=== PATIENT | male | born 2000 | race Asian ===

== ENCOUNTER 2020-02-23 17:55 | Emergency (ER) | payer OTHER ==
--- NOTE | 2020-02-23 18:44 | EDM.PDOC ---
ED HPI GENERAL MEDICAL PROBLEM - General Chief Complaint: Lower Extremity Injury/Pain Stated Complaint: LEFT KNEE INJURY Time Seen by Provider: 02/23/20 17:59 Source of Information: Reports: Patient History Limitations: Reports: No Limitations - History of Present Illness INITIAL COMMENTS - FREE TEXT/NARRATIVE: HISTORY AND PHYSICAL: History of present illness: Patient is a 19-year-old male who presents to the ED today with concern of left knee pain and injury that occurred just prior to arrival to the ED. Patient states he was up on a large tire of a vehicle when he stepped down. Patient states he felt his knee twist and his kneecap was off to the side. Patient states that while waiting in the ED he was able to get his kneecap to pop back into place according to patient. Patient states he still has significant knee pain. Patient states he has not taken anything for his symptoms. Patient denies any other symptoms or concerns. Patient denies fever, chills, chest pain, shortness of breath, or cough. Denies headache, neck stiff ness, change in vision, syncope, or near syncope. Denies nausea, vomiting, abdominal pain, diarrhea, constipation, or dysuria. Has not noted any blood in urine or stool. Patient has been eating and drinking appropriately. Review of systems: As per history of present illness and below otherwise all systems reviewed and negative. Past medical history: As per history of present illness and as reviewed below otherwise noncontributory. Surgical history: As per history of present illness and as reviewed below otherwise noncontr ibutory. Social history: See social history for further information Family history: As per history of present illness and as reviewed below otherwise noncontributory. Physical exam: General: Patient is alert, oriented, and in no acute distress. Patient sitting comfortably on exam table. HEENT: Atraumatic, normocephalic, pupils equal and reactive bilaterally, negative for conjunctival pallor or scleral icterus, mucous membranes moist, TMs normal bilaterally, throat clear, neck supple, nontender, trachea midline. No drooling or trismus noted. No meningeal signs. No hot potato voice noted. Lungs: Clear to auscultation, breath sounds equal bilaterally, chest nontender. Heart: S1S2, regular rate and rhythm without overt murmur Abdomen: Soft, nondistended, nontender. Negative for masses or hepatosplenomegaly. Negative for costovertebral tenderness. Pelvis: Stable nontender. Genitourinary: Deferred. Rectal: Deferred. Skin: Intact, warm, dry. No lesions or rashes noted. Extremities: The left knee is moderately edematous. Patient has limited range of motion of the left knee due to pain. Exam of the knee is limited due to pain. Dorsalis pedis and posterior tibial pulses are intact of the left lower extremity with capillary refill less than 2 seconds. Atraumatic, negative for cords or calf pain. Neurovascular unremarkable. Neuro: Awake, alert, oriented. Cranial nerves II through XII unremarkable. Cerebellum unremarkable. Motor and sensory unremarkable throughout. Exam nonfocal. Notes: Discussed importance for follow-up with an orthopedic provider. Voices understanding and is agreeable to plan of care. Denies any further questions or concerns at this time. Diagnostics: Knee x-ray Therapeutics: Knee immobilizer and crutches Prescription: None Impression: Femoral condyle fracture, left Plan: 1. Rest, ice, elevate the affected extremity. You can apply ice 15 minutes on, 15 minutes off. Keep immobilizer on until orthopedic evaluation. 2. Tylenol and/or Ibuprofen as directed for pain management or discomfort. 3. Follow up with the Orthopedic provider as discussed. Return to the ED as needed and as discussed. Definitive disposition and diagnosis as appropriate pending reevaluation and review of above. left knee Pain Score (Numeric/FACES): 2 - Related Data Allergies Allergy/AdvReac Type Severity Reaction Status Date / Time No Known Allergies Allergy Verified 02/23/20 18:45 Home Meds: Home Meds . [No Known Home Meds] 02/23/20 [History] Review of Systems - Review of Systems Review Of Systems: Comprehensive ROS is negative, except as noted in HPI. ED EXAM, GENERAL - Physical Exam Exam: See Below (See dictation) Course - Vital Signs Last Recorded V/S: Last Vital Signs Temp 98.4 F 02/23/20 18:43 Pulse 83 02/23/20 18:43 Resp 16 02/23/20 18:43 BP 122/75 02/23/20 18:43 Pulse Ox 97 02/23/20 18:43 - Orders/Labs/Meds Orders: Active Orders 24 hr Category Date Time Status DME for Discharge [COMM] Stat Oth 02/23/20 20:10 Ordered DME for Discharge [COMM] Stat Oth 02/23/20 20:11 Ordered Departure - Departure Time of Disposition: 20:12 Disposition: Home, Self-Care 01 Clinical Impression: Femoral condyle fracture Qualifiers: Encounter type: initial encounter Fracture type: closed Fracture alignment: nondisplaced Laterality: left Qualified Code(s): S72.415A - Nondisplaced unspecified condyle fracture of lower end of left femur, initial encounter for closed fracture - Discharge Information Referrals: PCP,None [Primary Care Provider] - Forms: ED Department Discharge Additional Instructions: The following information is given to patients seen in the emergency department who are being discharged to home. This information is to outline your options for follow-up care. We provide all patients seen in our emergency department with a follow-up referral. The need for follow-up, as well as the timing and circumstances, are variable depending upon the specifics of your emergency department visit. If you don't have a primary care physician on staff, we will provide you with a referral. We always advise you to contact your personal physician following an emergency department visit to inform them of the circumstance of the visit and for follow-up with them and/or the need for any referrals to a consulting specialist. The emergency department will also refer you to a specialist when appropriate. This referral assures that you have the opportunity for follow-up care with a specialist. All of these measure are taken in an effort to provide you with optimal care, which includes your follow-up. Under all circumstances we always encourage you to contact your private physician who remains a resource for coordinating your care. When calling for follow-up care, please make the office aware that this follow-up is from your recent emergency room visit. If for any reason you are refused follow-up, please contact the [facility] Emergency Department at and asked to speak to the emergency department charge nurse. [facility] Primary [facility] [address] [place] [id number] [facility] [address] [place] [address] [facility] Specialty Care - Orthopedic Clinic Professional Building [address], [address] [place] [address] Dr Gallegos, Orthopedist [facility] [address] [place] [address] Dr York - Dr Shaw - Dr Rodriguez [facility] at [facility] [address] [place] [address] [facility] [address] [place] [address] 1. Rest, ice, elevate the affected extremity. You can apply ice 15 minutes on, 15 minutes off. Keep immobilizer on until orthopedic evaluation. 2. Tylenol and/or Ibuprofen as directed for pain management or discomfort. 3. Follow up with the Orthopedic provider as discussed. Return to the ED as needed and as discussed. Sepsis Event Note (ED) - Focused Exam Vital Signs: Vital Signs Temp Pulse Resp BP Pulse Ox 02/23/20 18:43 98.4 F 83 16 122/75 97 - My Orders Last 24 Hours: My Active Orders 02/23/20 20:10 DME for Discharge [COMM] Stat 02/23/20 20:11 DME for Discharge [COMM] Stat - Assessment/Plan Last 24 Hours: My Active Orders 02/23/20 20:10 DME for Discharge [COMM] Stat 02/23/20 20:11 DME for Discharge [COMM] Stat
--- NOTE | 2020-02-23 20:07 | CR ---
Left knee: AP, lateral and sunrise patellar views left knee were obtained. Comparison: No previous study. Very small laurie of bone is seen next to the inferior patella which appears to represent a small osteochondral fracture off the inferior patella. Small joint effusion is seen. Medial and lateral joint spaces are maintained. Small bony density is also noted off the epicondyle of the lateral femur suspicious for small avulsion fracture which is mildly displaced at the attachment of the lateral collateral ligament. No additional bony abnormality is appreciated. Impression: 1. Findings suspicious for avulsion fracture at the attachment of the lateral collateral ligament to the epicondylar femur. 2. Minimal osteochondral fracture off the inferior patella. 3. Small joint effusion. Diagnostic code #3 This report was dictated in MDT
[2020-02-23] MEDS ORDERED: Acetaminophen/oxyCODONE 325-5 MG Tab PO ONE (21:25)
== END 2020-02-23 21:32 | disposition home or self-care (01) ==
LOC: MW.ED 17:55
DX: S72.415A Nondisplaced unspecified condyle fracture of lower end of left femur, initial encounter for closed fracture (principal); X50.1XXA Overexertion from prolonged static or awkward postures, initial encounter
CPT/HCPCS: 73562; 99283; A9270; 99282

== ENCOUNTER 2024-04-28 12:49 | Emergency (ER) | payer BC ==
[2024-04-28 13:04] LABS: BASOPHILS ABSOLUTE AUTO 0.05 K/uL (0.00-0.20); BASOPHILS PERCENT AUTO 0.5 % (0.0-1.0); EOSINOPHILS ABSOLUTE AUTO 0.34 K/uL (0.00-0.45); EOSINOPHILS PERCENT AUTO 3.7 % (0.0-6.0); HEMATOCRIT 44.8 % (42.0-52.0); HEMOGLOBIN 15.7 g/dL (14.0-18.0); IMMATURE GRAN ABSOLUTE AUTO 0.02 K/uL (0.00-0.05); IMMATURE GRAN PERCENT AUTO 0.2 % (0.0-0.4); LYMPHOCYTES ABSOLUTE AUTO 2.74 K/uL (1.00-4.80); LYMPHOCYTES PERCENT AUTO 29.9 % (24.0-44.0); MEAN CORPUSCULAR HEMOGLOBIN 30.1 pg (28.0-32.0); MEAN CORPUSCULAR VOLUME 85.8 fL (83.0-99.0); MEAN PLATELET VOLUME 9.3 fL (9.4-12.4); MONOCYTES ABSOLUTE AUTO 0.58 K/uL (0.00-0.80); MONOCYTES PERCENT AUTO 6.3 % (0.0-8.0); NEUTROPHILS ABSOLUTE AUTO 5.43 K/uL (1.80-7.70); NEUTROPHILS PERCENT AUTO 59.4 % (41.0-71.0); PLATELET COUNT,PLT 406 K/uL (150-400); RED BLOOD CELL COUNT 5.22 M/uL (4.52-5.90); WHITE BLOOD CELL COUNT,WBC 9.16 K/uL (3.9-11.3)
[2024-04-28 13:36] LABS: A/G RATIO 1.2 (0.9-1.6); ALBUMIN 4.4 g/dL (3.4-5.0); BILIRUBIN TOTAL 0.3 mg/dL (0.2-1.0); CALCIUM 9.6 mg/dL (8.5-10.1); EST CRCL DRUG DOSING (CG) 118.63 mL/min
[2024-04-28] MEDS: Alum Hydrox/Mag Hydrox/Simeth 15 ML, Lidocaine 2% 5 ML PO STA (13:42)
== END 2024-04-28 14:30 | disposition home or self-care (01) ==
LOC: MW.ED 12:49
DX: R10.10 Upper abdominal pain, unspecified (principal); Z75.8 Other problems related to medical facilities and other health care
CPT/HCPCS: 36415; 80053; 83605; 83690; 85025; 99284; A9270

== ENCOUNTER 2024-08-15 06:56 | Day surgery (SDC) | payer BC ==
[2024-08-15] MEDS ORDERED: ceFAZolin 2 GM in Sodium Chloride 0.9% 50 ML IV ONE (07:00)
[2024-08-15] MEDS ORDERED: Bupivacaine 0.5% 10 ML SDV ONE (07:19)
[2024-08-15] MEDS ORDERED: ceFAZolin 1 GM Vial ONE (07:19)
[2024-08-15] MEDS ORDERED: Morphine 10 MG/ML SDV ONE (07:32)
[2024-08-15] MEDS ORDERED: fentaNYL 250 MCG/5 ML SDV ONE (07:32)
[2024-08-15] MEDS ORDERED: Propofol 200 MG/20 ML SDV ONE (07:32)
[2024-08-15] MEDS ORDERED: HYDROmorphone 1 MG/ML Syringe IVPUSH PRN (07:38)
[2024-08-15] MEDS ORDERED: Sodium Chloride 0.9% 20 ML ONE ×2 (07:38)
[2024-08-15] MEDS ORDERED: Ondansetron 4 MG/2 ML SDV IVPUSH PRN (07:38)
[2024-08-15] MEDS ORDERED: Famotidine 20 MG/2 ML SDV ONE (07:38)
[2024-08-15] MEDS ORDERED: Morphine 2 MG/ML SYRINGE IVPUSH PRN (07:38)
[2024-08-15] MEDS ORDERED: Albuterol 0.083% 2.5 MG/3 ML Neb Soln NEB PRN (07:38)
[2024-08-15] MEDS ORDERED: Ropivacaine 0.5% 5 MG/ML 30 ML SDV ONE (07:38)
[2024-08-15] MEDS ORDERED: Phenylephrine HCl In 0.9% NaCl 1 MG/10 ML Syringe IVPUSH PRN (07:38)
[2024-08-15] MEDS ORDERED: Metoclopramide 10 MG/2 ML SDV IVPUSH PRN (07:38)
[2024-08-15] MEDS ORDERED: fentaNYL 50 MCG/ML SDV IVPUSH PRN (07:38)
[2024-08-15] MEDS ORDERED: Naloxone 0.4 MG/ML SDV IVPUSH PRN (07:38)
[2024-08-15] MEDS: Lactated Ringers 1,000 ML IV SCH (07:39)
[2024-08-15] MEDS: Scopalamine 1mg/3day Transdermal Patch TRDERM PRN (07:48)
[2024-08-15] MEDS ORDERED: ceFAZolin 2 GM Vial ONE (08:12)
[2024-08-15] MEDS ORDERED: Ketamine HCL/NACL, ISO-OSM 50 MG/5 ML Syringe ONE (08:15)
[2024-08-15] MEDS ORDERED: fentaNYL 100 MCG/2 ML SDV ONE ×2 (08:23)
[2024-08-15] MEDS ORDERED: Ondansetron 4 MG/2 ML SDV ONE (08:27)
[2024-08-15] MEDS ORDERED: Ketorolac 30 MG/ML SDV ONE (08:27)
[2024-08-15] MEDS ORDERED: Dexamethasone 4 MG/ML 5 ML MDV ONE (08:27)
[2024-08-15] MEDS ORDERED: Lidocaine 2% 11 ML Jelly Filled Syringe ONE (08:28)
[2024-08-15] MEDS ORDERED: Sugammadex Sodium 200 MG/2 ML VIAL IV ONE (08:57)
[2024-08-15] MEDS ORDERED: Acetaminophen/HYDROcodone 325-5 MG Tab PO PRN (09:53)
[2024-08-15] MEDS ORDERED: Lactated Ringers 1,000 ML IV SCH (10:00)
== END 2024-08-15 12:10 | disposition home or self-care (01) ==
LOC: MW.SDS 06:56
PROVIDERS: ATTEND Surgery
DX: K80.10 Calculus of gallbladder with chronic cholecystitis without obstruction (principal); I10 Essential (primary) hypertension; E11.9 Type 2 diabetes mellitus without complications; K21.9 Gastro-esophageal reflux disease without esophagitis
CPT/HCPCS: 47562; 64488; A9270; J0131; J0665; J0690; J1100; J1885; J2272; J2405; J2704; J2795; J3010; J7120; 00790; J3490